=== PATIENT | female | born 1965 | race Caucasian/White ===

== ENCOUNTER 2018-05-14 18:18 | Emergency (ER) | payer MEDICAID ==
[2018-05-14] MEDS: KETOROLAC 30 MG INJ IM (19:52)
== END 2018-05-14 20:20 | disposition home or self-care (01) ==
LOC: FTE 18:18
DX: M54.42 Lumbago with sciatica, left side (principal); E11.9 Type 2 diabetes mellitus without complications
CPT/HCPCS: 96372; 99284-25

== ENCOUNTER 2018-07-24 07:42 | Emergency (ER) | payer MEDICAID ==
[2018-07-24 08:51] LABS: URINE BLOOD (Dip) POC Trace-intact (NEGATIVE); URINE GLUCOSE (Dip) POC Negative (NEGATIVE); URINE KETONES (Dip) POC Negative (NEGATIVE); URINE LEUKOCYTE EST (Dip) POC 2+ (NEGATIVE); URINE NITRITE (Dip) POC Negative (NEGATIVE); URINE TOTAL PROTEIN POC Negative (NEGATIVE)
[2018-07-24] MEDS: KETOROLAC 15 MG INJ IM (09:48)
[2018-07-24 11:11] LABS: ADD UMIC YES; UR ASCORBIC ACID NEGATIVE (NEGATIVE); UR BACTERIA FEW /HPF (NONE SEEN); UR BILIRUBIN (Dip) NEGATIVE (NEGATIVE); UR BLOOD (Dip) 1+ mg/dL (NEGATIVE); UR CLARITY CLEAR (CLEAR); UR COLOR YELLOW (YELLOW); UR GLUCOSE (Dip) NEGATIVE (NEGATIVE); UR KETONES (Dip) NEGATIVE (NEGATIVE); UR LEUKOCYTE ESTERASE (Dip) 2+ Leu/ul (NEGATIVE); UR NITRITE (Dip) NEGATIVE (NEGATIVE); UR RBC 3 /HPF (0-5); UR SPECIFIC GRAVITY (Dip) 1.015 (1.003-1.030); UR TOTAL PROTEIN (Dip) NEGATIVE (NEGATIVE); UR UROBILINOGEN (Dip) NEGATIVE (NEGATIVE); UR WBC 17 /HPF (0-5)
== END 2018-07-24 11:22 | disposition home or self-care (01) ==
LOC: E/R 07:42
DX: R20.2 Paresthesia of skin (principal); M54.32 Sciatica, left side; M54.31 Sciatica, right side; E11.49 Type 2 diabetes mellitus with other diabetic neurological complication; N39.0 Urinary tract infection, site not specified; E66.9 Obesity, unspecified; Z68.37 Body mass index [BMI] 37.0-37.9, adult
CPT/HCPCS: 81001; 81003; 82962; 96372; 99284-25